=== PATIENT | female | born 1950 | race Caucasian/White ===

== ENCOUNTER 2018-11-08 13:49 | Emergency (ER) | payer MEDICARE ==
[~2018-11-08] VITALS: Ht 152.4 cm; Wt 34.2 kg
[2018-11-08 14:40] VITALS: BP 145/83
[2018-11-08] MEDS ORDERED: DEXAMETHASONE 4 MG/ML, 5ML ONE (15:23)
[2018-11-08] MEDS ORDERED: DEXAMETHASONE 4 MG/ML, 1ML PO ONE (15:30)
--- NOTE | 2018-11-08 15:47 | NUR ---
Patient/Caregiver given discharge instructions and they have confirmed that they understand the instructions. Patient ambulatory with steady gait.
== END 2018-11-08 15:48 | disposition home or self-care (01) ==
LOC: ED 15:30
DX: L04.0 Acute lymphadenitis of face, head and neck (principal); B34.9 Viral infection, unspecified; J44.1 Chronic obstructive pulmonary disease with (acute) exacerbation; F17.200 Nicotine dependence, unspecified, uncomplicated
CPT/HCPCS: 71046; 99283; J1100